=== PATIENT | male | born 1980 | race American Indian/Alaskan Native ===

== ENCOUNTER 2017-09-08 14:16 | Emergency (ER) | payer SELFPAY ==
[2017-09-08 15:51] VITALS: BP 177/117
--- NOTE | 2017-09-08 18:08 | Cat Scan Report ---
FINAL REPORT PROCEDURE: CT head without contrast. TECHNIQUE: Computerized tomography of the head was performed without contrast material. HISTORY: Patient fell, head injury. COMPARISON: No prior studies are available for comparison. FINDINGS: The ventricles are normal in size. The limon matter and white matter appear normal. There are no mass lesions. There is no intracranial hemorrhage. The calvarium appears intact. The mastoid air cells and visualized paranasal sinuses are well aerated. IMPRESSION: Normal study.
--- NOTE | 2017-09-08 18:14 | Cat Scan Report ---
FINAL REPORT PROCEDURE: CT cervical spine without contrast. TECHNIQUE: Computerized tomography of the cervical spine was performed from the skull base to T1 without contrast material. HISTORY: Patient fell, neck pain. COMPARISON: No prior studies are available for comparison. FINDINGS: The cervical vertebrae have normal height and satisfactory alignment. There are no fractures. There is no subluxation. There is a gentle kyphosis in the mid cervical spine. The disc spaces are well maintained. The spinal canal is widely patent. The facet joints appear satisfactory. The neural foramina are widely patent. The prevertebral soft tissues have normal thickness. IMPRESSION: No significant abnormality.
== END 2017-09-08 21:10 | disposition left against medical advice (07) ==
LOC: ED 14:16
DX: R51 Headache (principal); M54.2 Cervicalgia; Z53.21 Procedure and treatment not carried out due to patient leaving prior to being seen by health care provider
CPT/HCPCS: 70450; 72125